=== PATIENT | female | born 1985 | race Caucasian/White ===

== ENCOUNTER 2017-12-20 08:33 | Emergency (ER) | payer MEDICAID, OTHER ==
[~2017-12-20] VITALS: Ht 165.1 cm; Wt 99.8 kg
[2017-12-20] MEDS ORDERED: fentaNYL PF VIAL 100 MCG/2 ML VIAL IV ONE (08:45)
[2017-12-20] MEDS ORDERED: IV NORMAL SALINE 1000ML BAG 1,000 ML IV ONE (08:45)
[2017-12-20] MEDS ORDERED: ONDANSETRON PF 4 MG/2 ML VIAL. IV ONE (08:45)
--- NOTE | 2017-12-20 08:52 | PHYS DOC ---
Past Medical History Past Medical History: No Pertinent History Past Surgical History: No Surgical History Alcohol Use: Occasionally Drug Use: Marijuana, Methamphetamine Adult General Chief Complaint Chief Complaint: NAUSEA/VOMITING/DIARRHA HPI HPI Patient is a 32 year old female who presents with 10 out of 10 sharp constant right upper quadrant abdominal pain radiating to her back that began 3 days ago , patient is also complaining of nausea and vomiting. Denies any fever. Denies any urgency frequency dysuria, denies any chance she is . She states she 's been seen in [facility] for the same complaint and was it was her gallbladder causing her pain but it does not need to be removed. She states she moved from [facility] to [place]. Review of Systems Review of Systems Constitutional: Denies fever or chills [] Eyes: Denies change in visual acuity, redness, or eye pain [] HENT: Denies nasal congestion or sore throat [] Respiratory: Denies cough or shortness of breath [] Cardiovascular: No additional information not addressed in HPI [] GI: Reports right upper quadrant abdominal pain, nausea and vomiting denies bloody stools or diarrhea [] : Denies dysuria or hematuria [] Musculoskeletal: Denies back pain or joint pain [] Integument: Denies rash or skin lesions [] Neurologic: Denies headache, focal weakness or sensory changes [] All other systems were reviewed and found to be within normal limits, except as documented in this note. Current Medications Current Medications Current Medications Medications (Trade) Dose Ordered Sig/Sweta Start Time Stop Time Status Last Admin Dose Admin Ceftriaxone Sodium 50 ml @ 100 mls/hr 1X ONCE 12/20/17 09:15 12/20/17 09:44 DC 12/20/17 09:26 100 MLS/HR Fentanyl Citrate (Fentanyl 2ml Vial) 50 mcg 1X ONCE 12/20/17 08:45 12/20/17 08:50 DC 12/20/17 08:57 50 MCG Ondansetron HCl (Zofran) 4 mg 1X ONCE 12/20/17 08:45 12/20/17 08:50 DC 12/20/17 08:56 4 MG Sodium Chloride 1,000 ml @ 1,000 mls/hr 1X ONCE 12/20/17 08:45 12/20/17 09:44 DC 12/20/17 08:56 1,000 MLS/HR Allergies Allergies Allergies Coded Allergies Type Severity Reaction Last Updated Verified No Known Drug Allergies 12/20/17 No Physical Exam Physical Exam Constitutional: Well developed, well nourished, no acute distress, non-toxic appearance. [] HENT: Normocephalic, atraumatic, bilateral external ears normal, oropharynx moist, no oral exudates, nose normal. [] Eyes: PERRLA, EOMI, conjunctiva normal, no discharge. [] Neck: Normal range of motion, no tenderness, supple, no stridor. [] Cardiovascular:Heart rate regular rhythm, no murmur [] Lungs & Thorax: Bilateral breath sounds clear to auscultation [] Abdomen: Rounded abdomen. Bowel sounds normal, soft, mild right upper quadrant abdominal tenderness with negative Preciado sign, no right lower quadrant tenderness, no masses, no pulsatile masses. [] Skin: Warm, dry, no erythema, no rash. [] Back: No tenderness, no CVA tenderness. [] Extremities: No tenderness, no cyanosis, no clubbing, ROM intact, no edema. [] Neurologic: Alert and oriented X 3, normal motor function, normal sensory function, no focal deficits noted. [] Psychologic: Patient is crying, restless Current Patient Data Vital Signs Vital Signs Date Time Temp Pulse Resp B/P (MAP) Pulse Ox O2 Delivery O2 Flow Rate FiO2 12/20/17 10:00 84 16 101/56 (71) 98 Room Air 12/20/17 08:33 97.4 97.4 Lab Values Laboratory Tests Test 12/20/17 08:40 12/20/17 08:47 White Blood Count 15.1 x10^3/uL (4.0-11.0) H Red Blood Count 4.96 x10^6/uL (3.50-5.40) Hemoglobin 14.4 g/dL (12.0-15.5) Hematocrit 43.7 % (36.0-47.0) Mean Corpuscular Volume 88 fL (79-100) Mean Corpuscular Hemoglobin 29 pg (25-35) Mean Corpuscular Hemoglobin Concent 33 g/dL (31-37) Red Cell Distribution Width 13.8 % (11.5-14.5) Platelet Count 224 x10^3/uL (140-400) Neutrophils (%) (Auto) 90 % (31-73) H Lymphocytes (%) (Auto) 7 % (24-48) L Monocytes (%) (Auto) 2 % (0-9) Eosinophils (%) (Auto) 1 % (0-3) Basophils (%) (Auto) 0 % (0-3) Neutrophils # (Auto) 13.6 x10^3uL (1.8-7.7) H Lymphocytes # (Auto) 1.1 x10^3/uL (1.0-4.8) Monocytes # (Auto) 0.2 x10^3/uL (0.0-1.1) Eosinophils # (Auto) 0.2 x10^3/uL (0.0-0.7) Basophils # (Auto) 0.0 x10^3/uL (0.0-0.2) Platelet Estimate Pending Urine Collection Type Unknown Urine Color Yellow Urine Clarity Cloudy Urine pH 6.0 Urine Specific [place] 1.015 Urine Protein 100 mg/dL (NEG-TRACE) Urine Glucose (UA) Negative mg/dL (NEG) Urine Ketones (Stick) Negative mg/dL (NEG) Urine Blood Large (NEG) Urine Nitrite Negative (NEG) Urine Bilirubin Negative (NEG) Urine Urobilinogen Dipstick 1.0 mg/dL (0.2 mg/dL) Urine Leukocyte Esterase Large (NEG) Urine RBC 11-20 /HPF (0-2) Urine WBC 20-40 /HPF (0-4) Urine Squamous Epithelial Cells Few /LPF Urine Bacteria Many /HPF (0-FEW) Sodium Level 137 mmol/L (136-145) Potassium Level 3.5 mmol/L (3.5-5.1) Chloride Level 104 mmol/L (98-107) Carbon Dioxide Level 28 mmol/L (21-32) Anion Gap 5 (6-14) L Blood Urea Nitrogen 6 mg/dL (7-20) L Creatinine 0.9 mg/dL (0.6-1.0) Estimated GFR (Cockcroft-Gault) 72.1 BUN/Creatinine Ratio 7 (6-20) Glucose Level 83 mg/dL (70-99) Calcium Level 8.5 mg/dL (8.5-10.1) Total Bilirubin 0.5 mg/dL (0.2-1.0) Aspartate Amino Transferase (AST) 11 U/L (15-37) L Alanine Aminotransferase (ALT) 18 U/L (14-59) Alkaline Phosphatase 96 U/L (46-116) Total Protein 7.6 g/dL (6.4-8.2) Albumin 3.4 g/dL (3.4-5.0) Albumin/Globulin Ratio 0.8 (1.0-1.7) L Lipase 80 U/L (73-393) Urine Opiates Screen Pos (NEG) Urine Methadone Screen Neg (NEG) Urine Barbiturates Neg (NEG) Urine Phencyclidine Screen Neg (NEG) Urine Amphetamine/Methamphetamine Neg (NEG) Urine Benzodiazepines Screen Neg (NEG) Urine Cocaine Screen Neg (NEG) Urine Cannabinoids Screen Neg (NEG) Ethyl Alcohol Level < 10 mg/dL (0-10) Urine Ethyl Alcohol Neg (NEG) POC Urine HCG, Qualitative Hcg negative (Negative) Laboratory Tests 12/20/17 08:40 Laboratory Tests 12/20/17 08:40 EKG EKG [] Radiology/Procedures Radiology/Procedures []PROCEDURE: ABDOMEN COMPLETE COMPLETE ABDOMINAL ULTRASOUND Clinical History: RUQ PAIN Comparison: None. Technique: Sonographic examination of the abdomen was performed and multiple grayscale and color Doppler static images were obtained. Findings: Most of the liver is visualized and is homogeneous. The liver measures 18.4 cm. Ultrasound is not sensitive for detecting solid liver lesions. Portal flow is hepatopetal. The common bile duct is normal in caliber, measuring 4 mm in diameter. The gallbladder wall is normal. Per report, sonographic Preciado sign is negative. There is no cholelithiasis or pericholecystic fluid. The visualized pancreas is homogeneous. The right kidney is normal in echotexture and measures 13.6 cm. The left kidney is normal in echotexture and measures 12.6 cm. Corticomedullary differentiation is preserved. There is no hydronephrosis. The spleen is not enlarged, measuring 12.5 cm. Visualized portions of the abdominal aorta and IVC are normal. IMPRESSION: Mild hepatomegaly. Electronically signed by: Perry Roland MD (12/20/2017 10:00 AM) [id number] DICTATED and SIGNED BY: PERRY ROLAND MD DATE: 12/20/17 0957 Course & Med Decision Making Course & Med Decision Making Pertinent Labs and Imaging studies reviewed. (See chart for details) This is a 32-year-old female patient presenting to the ED today complaining of right upper quadrant abdominal pain radiating to her back with nausea and vomiting for 3 days. Has history of gall bladder problems but was told it does not need to be removed per her statement. Abdominal ultrasound is noted for hepatomegaly otherwise no acute findings. CBC with a WBC of 15.1, CMP with no acute findings, UA noted for large amount of leukocytes. Patient was started on Rocephin in the ED. She has been given IV fluids. She has been given nausea medicine and pain medicine. She is resting comfortably, she states she feels better and is very thankful. Her temp is normal the rest of her vitals are stable. She'll be discharged with Cipro. Instructed to push fluids. Follow up with her own doctor in the next 7 days. Provided return to questions and discharged in stable condition. Dragon Disclaimer Dragon Disclaimer This electronic medical record was generated, in whole or in part, using a voice recognition dictation system. Departure Departure Impression: Primary Impression: Acute pyelonephritis Disposition: 01 HOME, SELF-CARE Condition: STABLE Referrals: KIESHA RENTERIA MD Follow-up in one week as needed Patient Instructions: Pyelonephritis, Adult Additional Instructions: You were evaluated in the emergency room and noted to have a kidney infection. We'll put you on antibiotics, ensure you complete them. Take the pain medicine as needed for pain. Push fluids. Follow-up with your own doctor in the course of next week. Come back to the emergency room at any point symptoms worsen. Scripts Tramadol Hcl (ULTRAM) 50 Mg Tablet 50 MG PO Q6HRS PRN for PAIN, #30 TAB 0 Refills Prov: TOOTIE OWENS APRN 12/20/17 Ondansetron (ZOFRAN ODT) 4 Mg Tab.rapdis 1 TAB SL Q8HRS, #15 TAB Prov: TOOTIE OWENS APRN 12/20/17 Ciprofloxacin Hcl (CIPRO) 500 Mg Tablet 1 TAB PO BID, #14 TAB Prov: TOOTIE OWENS APRN 12/20/17 TOOTIE OWENS APRN Dec 20, 2017 08:52
[2017-12-20 08:55] LABS: BASO % 0 % (0-3); EOS # 0.2 x10^3/uL (0.0-0.7); EOS % 1 % (0-3); HEMATOCRIT 43.7 % (36.0-47.0); HEMOGLOBIN 14.4 g/dL (12.0-15.5); LYMPH # 1.1 x10^3/uL (1.0-4.8); LYMPH % 7 % (24-48); MEAN CORPUSCULAR HEMOGLOBIN 29 pg (25-35); MEAN CORPUSCULAR HGB CONC 33 g/dL (31-37); MEAN CORPUSCULAR VOLUME 88 fL (79-100); MONO # 0.2 x10^3/uL (0.0-1.1); MONO % 2 % (0-9); NEUT # 13.6 x10^3uL (1.8-7.7); NEUT % 90 % (31-73); PLATELET COUNT 224 x10^3/uL (140-400); RED BLOOD COUNT 4.96 x10^6/uL (3.50-5.40); RED CELL DISTRIBUTION WIDTH 13.8 % (11.5-14.5); WHITE BLOOD COUNT 15.1 x10^3/uL (4.0-11.0)
[2017-12-20 09:04] LABS: CALCIUM 8.5 mg/dL (8.5-10.1); CREATININE 0.9 mg/dL (0.6-1.0); GFR 72.1; POTASSIUM 3.5 mmol/L (3.5-5.1)
[2017-12-20 09:06] LABS: BILIRUBIN,URINE NEGATIVE (NEG); CLARITY,URINE CLOUDY; COLOR,URINE YELLOW; NITRITE,URINE NEGATIVE (NEG); PROTEIN,URINE 100 mg/dL (NEG-TRACE)
[2017-12-20 09:10] LABS: ALBUMIN 3.4 g/dL (3.4-5.0); ALBUMIN/GLOBULIN RATIO 0.8 (1.0-1.7); SQUAMOUS EPITHELIAL CELL,UR FEW /LPF; TOTAL BILIRUBIN 0.5 mg/dL (0.2-1.0); TOTAL PROTEIN 7.6 g/dL (6.4-8.2)
[2017-12-20 09:11] LABS: BACTERIA,URINE MANY /HPF (0-FEW); WBC,URINE 20-40 /HPF (0-4)
[2017-12-20 09:15] LABS: AMPHETAMINE/METHAMPHETAMINE NEG (NEG); BARBITURATES NEG (NEG); BENZODIAZEPINES NEG (NEG); CANNABINOIDS NEG (NEG); COCAINE NEG (NEG); METHADONE NEG (NEG); OPIATES POS (NEG); PHENCYCLIDINE NEG (NEG)
[2017-12-20 10:00] VITALS: BP 101/56
--- NOTE | 2017-12-20 10:04 | RAD ---
COMPLETE ABDOMINAL ULTRASOUND Clinical History: RUQ PAIN Comparison: None. Technique: Sonographic examination of the abdomen was performed and multiple grayscale and color Doppler static images were obtained. Findings: Most of the liver is visualized and is homogeneous. The liver measures 18.4 cm. Ultrasound is not sensitive for detecting solid liver lesions. Portal flow is hepatopetal. The common bile duct is normal in caliber, measuring 4 mm in diameter. The gallbladder wall is normal. Per report, sonographic Preciado sign is negative. There is no cholelithiasis or pericholecystic fluid. The visualized pancreas is homogeneous. The right kidney is normal in echotexture and measures 13.6 cm. The left kidney is normal in echotexture and measures 12.6 cm. Corticomedullary differentiation is preserved. There is no hydronephrosis. The spleen is not enlarged, measuring 12.5 cm. Visualized portions of the abdominal aorta and IVC are normal. IMPRESSION: Mild hepatomegaly. Electronically signed by: Perry Roland MD (12/20/2017 10:00 AM) [id number]
[2017-12-20] MEDS ORDERED: ONDA4TAB10 SL (10:22)
[2017-12-20] MEDS ORDERED: TRAM-48 PO (10:22)
[2017-12-20] MEDS ORDERED: CIPR500T94 PO (10:22)
[2017-12-20 12:45] LABS: % ATYL 1 % (0-0); % BANDS 7 % (0-9); % EOS 1 % (0-5); % LYMPHS 9 % (24-48); % MONOS 1 % (0-10); % SEGS 81 % (35-66)
[2017-12-20 14:24] LABS: PLT ESTIMATE ADEQUATE (ADEQUATE)
== END 2017-12-20 10:25 | disposition home or self-care (01) ==
LOC: ER 10:06
DX: N10 Acute pyelonephritis (principal)
CPT/HCPCS: 36415; 76700; 80053; 80307; 81001; 81025; 83690; 85007; 85025; 87086; 96365; 96375; 99285; G0480; J0690; J2405; J3010; J7030; G0479

== ENCOUNTER 2018-03-02 14:38 | Emergency (ER) | payer SELFPAY ==
[~2018-03-02] VITALS: Ht 165.1 cm; Wt 95.3 kg
[~2018-03-02 14:38] MED LIST: CIPR500T94 PO; ONDA4TAB10 SL; TRAM-48 PO
[2018-03-02 14:46] VITALS: BP 126/74
[2018-03-02] MEDS ORDERED: DEXAMETHASONE 4 MG TABLET PO ONE (15:00)
[2018-03-02] MEDS ORDERED: ONDANSETRON ODT 4 MG TAB.RAPDIS. PO ONE (15:00)
[2018-03-02] MEDS ORDERED: IBUPROFEN 400 MG TABLET. PO ONE ×2 (15:15→15:26)
[2018-03-02] MEDS ORDERED: AMOX500T PO (15:15)
--- NOTE | 2018-03-02 15:16 | PHYS DOC ---
Past Medical History Past Medical History: No Pertinent History Past Surgical History: No Surgical History Additional Past Surgical Histo: DNC x 2 Alcohol Use: Occasionally Drug Use: Marijuana, Methamphetamine Adult General Chief Complaint Chief Complaint: SORE THROAT HPI HPI Patient is a 32 year old female who presents with sore throat, ear pressure, cough, cotton cold chills, nausea vomiting times the last 3 days. Patient states that she has not taken any medications and she takes no medications daily. She states that she has no known drug allergies and has no medical history. Patient states that she does smoke. Review of Systems Review of Systems Constitutional: Denies fever or chills [] Eyes: Denies change in visual acuity, redness, or eye pain. Ear pain bilaterally.[] HENT: Denies nasal congestion. Sore throat [] Respiratory: Denies cough or shortness of breath [] Cardiovascular: No additional information not addressed in HPI [] GI: Denies abdominal pain. Denies nausea, vomiting. Denies bloody stools or diarrhea [] : Denies dysuria or hematuria [] Musculoskeletal: Generalized body aches. Denies back pain or joint pain [] Integument: Denies rash or skin lesions [] Neurologic: Denies headache, focal weakness or sensory changes [] All other systems were reviewed and found to be within normal limits, except as documented in this note. Current Medications Current Medications Current Medications Medications (Trade) Dose Ordered Sig/Sweta Start Time Stop Time Status Last Admin Dose Admin Dexamethasone (Decadron) 8 mg 1X ONCE 03/02/18 15:00 03/02/18 15:01 DC 03/02/18 15:11 8 MG Ibuprofen (Motrin) 400 mg STK-MED ONCE 03/02/18 15:26 03/02/18 15:27 DC Ondansetron HCl (Zofran Odt) 4 mg 1X ONCE 03/02/18 15:00 03/02/18 15:01 DC 03/02/18 15:11 4 MG Allergies Allergies Allergies Coded Allergies Type Severity Reaction Last Updated Verified No Known Drug Allergies 12/20/17 No Physical Exam Physical Exam Constitutional: Well developed, well nourished, no acute distress, non-toxic appearance. [] HENT: Normocephalic, atraumatic, bilateral external ears normal, oropharynx moist, no oral exudates, nose normal. Red throat, pain with exudates.[] Eyes: PERRLA, EOMI, conjunctiva normal, no discharge. [] Neck: Normal range of motion, no tenderness, supple, no stridor. [] Cardiovascular:Heart rate regular rhythm, no murmur [] Lungs & Thorax: Bilateral breath sounds clear to auscultation [] Abdomen: Bowel sounds normal, soft, no tenderness, no masses, no pulsatile masses. [] Skin: Warm, dry, no erythema, no rash. [] Back: No tenderness, no CVA tenderness. [] Extremities: No tenderness, no cyanosis, no clubbing, ROM intact, no edema. [] Neurologic: Alert and oriented X 3, normal motor function, normal sensory function, no focal deficits noted. [] Psychologic: Affect normal, judgement normal, mood normal. [] Current Patient Data Vital Signs Vital Signs Date Time Temp Pulse Resp B/P (MAP) Pulse Ox O2 Delivery O2 Flow Rate FiO2 03/02/18 14:46 97.8 117 18 126/74 (91) 99 Room Air 97.8 EKG EKG [] Radiology/Procedures Radiology/Procedures [] Course & Med Decision Making Course & Med Decision Making Patient is a 32 year old female who presents with sore throat, ear pressure, cough, cotton cold chills, nausea vomiting times the last 3 days. Patient states that she has not taken any medications and she takes no medications daily. She states that she has no known drug allergies and has no medical history. Patient states that she does smoke. Patient is alert and oriented. Skin is pink warm and dry. Lungs are clear to auscultation all lobes. Mucous membranes are moist. Abdomen is soft and nontender. Throat is red with exudates and tonsils are slightly swollen. Patient denies any shortness of breath or chest pain. Patient speaks in full clear sentences. Bilateral tympanic membranes are pearly white. Patient's strep is positive. Patient is given a dose of dexamethasone, Zofran, ibuprofen in the ED. Patient is discharged with amoxicillin and to follow-up with her primary care within the next 3 days. Patient is stable and in no distress. Dragon Disclaimer Dragon Disclaimer This electronic medical record was generated, in whole or in part, using a voice recognition dictation system. Departure Departure Impression: Primary Impression: Strep pharyngitis Disposition: HOME, SELF-CARE Condition: STABLE Referrals: NO PCP (PCP) Patient Instructions: Strep Throat Additional Instructions: Follow up with your primary care within 3 days. Take medications as prescribed. Take Tylenol or Ibuprofen for pain. Scripts Amoxicillin (AMOXICILLIN) 500 Mg Tablet 1 TAB PO BID, #20 TAB Prov: RANDALL ELMORE APRN 03/02/18 RANDALL ELMORE APRN Mar 02, 2018 15:16
== END 2018-03-02 15:32 | disposition home or self-care (01) ==
LOC: ER 14:38
DX: J02.0 Streptococcal pharyngitis (principal); B95.4 Other streptococcus as the cause of diseases classified elsewhere; R11.2 Nausea with vomiting, unspecified; R68.83 Chills (without fever); M79.10 Myalgia, unspecified site
CPT/HCPCS: 87880; 99284; J8540; Q0162

== ENCOUNTER 2019-06-10 11:07 | Emergency (ER) | payer SELFPAY ==
[~2019-06-10] VITALS: Ht 162.6 cm; Wt 102.0 kg
[~2019-06-10 11:07] MED LIST changes: +AMOX500T PO
--- NOTE | 2019-06-10 12:44 | PHYS DOC ---
Past Medical History Past Medical History: No Pertinent History Past Surgical History: No Surgical History Additional Past Surgical Histo: DNC x 2 Smoking Status: Current Every Day Smoker Alcohol Use: Occasionally Drug Use: Marijuana, Methamphetamine Adult General Chief Complaint Chief Complaint: ABDOMINAL PAIN [facility] HPI Patient is a 34 year old female, accompanied by her and children, who presents to the emergency department with complaints of right-sided upper back pain and right-sided chest pain that began at approximately 9:30 this morning. Patient denies any known injury. She denies any palpitations, diaphoresis, dizziness, nausea, vomiting, diarrhea, abdominal pain, shortness of breath, wheezing, or fever. She states that she had similar pain like this when she was and had gallbladder problems. Patient states that the pain is worse if she lies on her back. She reports that she has recently been sleeping on the floor at her sister's house but denies any known trauma or injury. Patient currently rates her pain a 10 out of 10 on pain scale, she denies any alleviating factors. All other ROS is neg unless otherwise noted in HPI. Review of Systems Review of Systems See Above Current Medications Current Medications Current Medications Medications (Trade) Dose Ordered Sig/Sweta Start Time Stop Time Status Last Admin Dose Admin Fentanyl Citrate (Fentanyl 2ml Vial) 50 mcg 1X ONCE 06/10/19 13:30 06/10/19 13:31 DC 06/10/19 13:36 50 MCG Multi-Ingredient Mouthwash/Gargle (Gi Cocktail) 20 ml 1X ONCE 06/10/19 13:00 06/10/19 13:01 DC 06/10/19 13:10 20 ML Ondansetron HCl (Zofran) 4 mg 1X ONCE 06/10/19 13:30 06/10/19 13:31 DC 06/10/19 13:35 4 MG Orphenadrine Citrate (Norflex) 60 mg 1X ONCE 06/10/19 14:30 06/10/19 14:31 DC Sodium Chloride 1,000 ml @ 1,000 mls/hr 1X ONCE 06/10/19 13:30 06/10/19 14:29 DC 06/10/19 13:33 1,000 MLS/HR Allergies Allergies Allergies Coded Allergies Type Severity Reaction Last Updated Verified No Known Drug Allergies 12/20/17 No Physical Exam Physical Exam See Above Constitutional: Well developed, well nourished, no acute distress, non-toxic appearance. [] HENT: Normocephalic, atraumatic, bilateral external ears normal, oropharynx moist, no oral exudates, nose normal. [] Eyes: PERRLA, EOMI, conjunctiva normal, no discharge. [] Neck: Normal range of motion, no stridor. [] Cardiovascular:Heart rate regular rhythm, no murmur [] Lungs & Thorax: Bilateral breath sounds clear to auscultation, Respirations even and unlabored, no retractions, no respiratory distress, chest non-tender to palpation [] Abdomen: Bowel sounds normal, soft, no tenderness, no masses, no pulsatile masses. [] Skin: Warm, dry, no erythema, no rash. [] Back: No bony tenderness, no CVA tenderness, R thoracic paraspinal TTP Extremities: No tenderness, no cyanosis, no clubbing, ROM intact, no edema. [] Neurologic: Alert and oriented X 3, no focal deficits noted. [] Psychologic: Affect normal, judgement normal, mood normal. [] Current Patient Data Vital Signs Vital Signs Date Time Temp Pulse Resp B/P (MAP) Pulse Ox O2 Delivery O2 Flow Rate FiO2 06/10/19 13:36 16 96 Room Air 06/10/19 12:42 97.6 69 137/90 (106) 97.6 Lab Values Laboratory Tests Test 06/10/19 13:00 06/10/19 13:04 06/10/19 13:13 Urine Color Yellow Urine Clarity Clear Urine pH 6.0 Urine Specific [place] 1.010 Urine Protein Negative mg/dL (NEG-TRACE) Urine Glucose (UA) Negative mg/dL (NEG) Urine Ketones (Stick) Negative mg/dL (NEG) Urine Blood Negative (NEG) Urine Nitrite Negative (NEG) Urine Bilirubin Negative (NEG) Urine Urobilinogen Dipstick 0.2 mg/dL (0.2 mg/dL) Urine Leukocyte Esterase Negative (NEG) Urine RBC 0 /HPF (0-2) Urine WBC Occ /HPF (0-4) Urine Squamous Epithelial Cells Occ /LPF Urine Bacteria Few /HPF (0-FEW) Urine Opiates Screen Neg (NEG) Urine Methadone Screen Neg (NEG) Urine Barbiturates Neg (NEG) Urine Phencyclidine Screen Neg (NEG) Urine Amphetamine/Methamphetamine Neg (NEG) Urine Benzodiazepines Screen Neg (NEG) Urine Cocaine Screen Neg (NEG) Urine Cannabinoids Screen Neg (NEG) Urine Ethyl Alcohol Neg (NEG) POC Urine HCG, Qualitative Hcg negative (Negative) White Blood Count 10.3 x10^3/uL (4.0-11.0) Red Blood Count 4.84 x10^6/uL (3.50-5.40) Hemoglobin 14.3 g/dL (12.0-15.5) Hematocrit 42.4 % (36.0-47.0) Mean Corpuscular Volume 88 fL (79-100) Mean Corpuscular Hemoglobin 30 pg (25-35) Mean Corpuscular Hemoglobin Concent 34 g/dL (31-37) Red Cell Distribution Width 14.3 % (11.5-14.5) Platelet Count 217 x10^3/uL (140-400) Neutrophils (%) (Auto) 72 % (31-73) Lymphocytes (%) (Auto) 17 % (24-48) L Monocytes (%) (Auto) 8 % (0-9) Eosinophils (%) (Auto) 2 % (0-3) Basophils (%) (Auto) 1 % (0-3) Neutrophils # (Auto) 7.4 x10^3/uL (1.8-7.7) Lymphocytes # (Auto) 1.8 x10^3/uL (1.0-4.8) Monocytes # (Auto) 0.8 x10^3/uL (0.0-1.1) Eosinophils # (Auto) 0.2 x10^3/uL (0.0-0.7) Basophils # (Auto) 0.1 x10^3/uL (0.0-0.2) Sodium Level 139 mmol/L (136-145) Potassium Level 4.4 mmol/L (3.5-5.1) Chloride Level 107 mmol/L (98-107) Carbon Dioxide Level 25 mmol/L (21-32) Anion Gap 7 (6-14) Blood Urea Nitrogen 8 mg/dL (7-20) Creatinine 0.6 mg/dL (0.6-1.0) Estimated GFR (Cockcroft-Gault) 113.8 BUN/Creatinine Ratio 13 (6-20) Glucose Level 86 mg/dL (70-99) Calcium Level 8.6 mg/dL (8.5-10.1) Total Bilirubin 0.3 mg/dL (0.2-1.0) Aspartate Amino Transferase (AST) 17 U/L (15-37) Alanine Aminotransferase (ALT) 20 U/L (14-59) Alkaline Phosphatase 78 U/L (46-116) Total Protein 6.4 g/dL (6.4-8.2) Albumin 2.9 g/dL (3.4-5.0) L Albumin/Globulin Ratio 0.8 (1.0-1.7) L Lipase 80 U/L (73-393) Laboratory Tests 06/10/19 13:13 Laboratory Tests 06/10/19 13:13 EKG EKG [] Radiology/Procedures Radiology/Procedures PROCEDURE: ABDOMEN LTD EXAM: Abdomen sonogram. HISTORY: Pain. TECHNIQUE: Sonographic imaging of the abdomen was performed. COMPARISON: None. FINDINGS: The liver is mildly enlarged. No focal hepatic lesion is seen. The gallbladder is unremarkable. The common bile duct is normal in caliber. The pancreas is obscured due to bowel gas. The right kidney and inferior vena cava are unremarkable. IMPRESSION: 1. Mild hepatomegaly. 2. Obscured pancreas due to bowel gas.[] Course & Med Decision Making Course & Med Decision Making Pertinent Labs and Imaging studies reviewed. (See chart for details) Patient is a 34-year-old female who presented to the emergency department with complaints of right upper back pain, and right chest pain that began at 9:30 this morning. She was given a GI cocktail with no reduction of her symptoms, patient was then given 50 g of fentanyl reported some relief of her symptoms but pain remained a 5 out of 10 on the pain scale. Ultrasound was negative for any acute findings, the gallbladder appeared normal. CBC was unremarkable, CMP was also unremarkable, UA was unremarkable. Patient was given 60 mg of IV orphenadrine. Patient requested a note that she could provide to the court tomorrow when she has to give a urine specimen that states she was given pain medication. Prescriptions written for ibuprofen and flexeril. Apply ice or heat to sore areas as needed for comfort. Follow up with PCP if symptoms persist, return to the ER if symptoms worsen. Pt verbalized an understanding of home care, medications, follow-up, and return to ED instructions and was in agreement with the plan of care. [] Dragon Disclaimer Dragon Disclaimer This electronic medical record was generated, in whole or in part, using a voice recognition dictation system. Departure Departure Impression: Primary Impression: Upper back pain on right side Disposition: 01 HOME, SELF-CARE Condition: STABLE Referrals: NO PCP (PCP) Patient Instructions: Back Pain, Adult, [id number] Additional Instructions: Fill the prescription(s) and use as directed. You were given 1 dose of Fentanyl in the ER today. Apply heat or ice for to sore areas as needed for comfort. Activity as tolerated. Follow up with your primary care doctor this week if symptoms persist, return to the ER if symptoms worsen. Scripts Ibuprofen (IBUPROFEN) 600 Mg Tablet 600 MG PO PRN Q6HRS PRN for INFLAMMATION for 10 Days, #40 TAB 0 Refills Prov: ARGENIS HAMILTON APRN 06/10/19 Cyclobenzaprine Hcl (CYCLOBENZAPRINE HCL) 10 Mg Tablet 1 TAB PO TID PRN for MUSCLE PAIN for 10 Days, #30 TAB 0 Refills Prov: ARGENIS HAMILTON APRN 06/10/19 ARGENIS HAMILTON APRN Jun 10, 2019 12:44
[2019-06-10] MEDS ORDERED: LIDO:MAALOX 1:1 20 ML SINGLE DOSE. SWSW ONE (13:00)
[2019-06-10 13:27] LABS: BILIRUBIN,URINE NEGATIVE (NEG); CLARITY,URINE CLEAR; COLOR,URINE YELLOW; NITRITE,URINE NEGATIVE (NEG); PROTEIN,URINE NEGATIVE (NEG-TRACE); UROBILINOGEN,URINE 0.2 mg/dL (0.2 mg/dL)
[2019-06-10 13:28] LABS: BASO # 0.1 x10^3/uL (0.0-0.2); BASO % 1 % (0-3); EOS # 0.2 x10^3/uL (0.0-0.7); EOS % 2 % (0-3); HEMATOCRIT 42.4 % (36.0-47.0); HEMOGLOBIN 14.3 g/dL (12.0-15.5); LYMPH # 1.8 x10^3/uL (1.0-4.8); LYMPH % 17 % (24-48); MEAN CORPUSCULAR HEMOGLOBIN 30 pg (25-35); MEAN CORPUSCULAR HGB CONC 34 g/dL (31-37); MEAN CORPUSCULAR VOLUME 88 fL (79-100); MONO # 0.8 x10^3/uL (0.0-1.1); MONO % 8 % (0-9); NEUT # 7.4 x10^3/uL (1.8-7.7); NEUT % 72 % (31-73); PLATELET COUNT 217 x10^3/uL (140-400); RED BLOOD COUNT 4.84 x10^6/uL (3.50-5.40); RED CELL DISTRIBUTION WIDTH 14.3 % (11.5-14.5); WHITE BLOOD COUNT 10.3 x10^3/uL (4.0-11.0)
[2019-06-10] MEDS ORDERED: ONDANSETRON PF 4 MG/2 ML VIAL. IV ONE (13:30)
[2019-06-10] MEDS ORDERED: IV NORMAL SALINE 1000ML BAG 1,000 ML IV ONE (13:30)
[2019-06-10] MEDS ORDERED: fentaNYL PF VIAL 100 MCG/2 ML VIAL IV ONE (13:30)
[2019-06-10 13:33] LABS: CALCIUM 8.6 mg/dL (8.5-10.1); CREATININE 0.6 mg/dL (0.6-1.0); GFR 113.8; POTASSIUM 4.4 mmol/L (3.5-5.1)
--- NOTE | 2019-06-10 13:34 | RAD ---
EXAM: Abdomen sonogram. HISTORY: Pain. TECHNIQUE: Sonographic imaging of the abdomen was performed. COMPARISON: None. FINDINGS: The liver is mildly enlarged. No focal hepatic lesion is seen. The gallbladder is unremarkable. The common bile duct is normal in caliber. The pancreas is obscured due to bowel gas. The right kidney and inferior vena cava are unremarkable. IMPRESSION: 1. Mild hepatomegaly. 2. Obscured pancreas due to bowel gas. Electronically signed by: Priya Blake MD (06/10/2019 1:31 PM) [facility] [place]
[2019-06-10 13:41] LABS: ALBUMIN 2.9 g/dL (3.4-5.0); ALBUMIN/GLOBULIN RATIO 0.8 (1.0-1.7); TOTAL BILIRUBIN 0.3 mg/dL (0.2-1.0); TOTAL PROTEIN 6.4 g/dL (6.4-8.2)
[2019-06-10 13:43] LABS: BACTERIA,URINE FEW /HPF (0-FEW); RBC,URINE 0 /HPF (0-2); SQUAMOUS EPITHELIAL CELL,UR OCC /LPF; WBC,URINE OCC /HPF (0-4)
[2019-06-10] MEDS ORDERED: CYCL10TA2 PO (14:25)
[2019-06-10] MEDS ORDERED: IBUP-1007 PO (14:25)
[2019-06-10] MEDS ORDERED: ORPHENADRINE CITRATE 60 MG/2 ML VIAL. IV ONE (14:30)
[2019-06-10 14:44] LABS: AMPHETAMINE/METHAMPHETAMINE NEG (NEG); BARBITURATES NEG (NEG); BENZODIAZEPINES NEG (NEG); CANNABINOIDS NEG (NEG); COCAINE NEG (NEG); METHADONE NEG (NEG); OPIATES NEG (NEG); PHENCYCLIDINE NEG (NEG)
[2019-06-10 14:46] VITALS: BP 113/69
--- NOTE | 2019-06-10 14:58 | EKG ---
[facility] [address] [place] [address] Test Date: 2019-06-10 Test Time: 11:15:24 Pat Name: JANICE OBREGON Department: Room: Gender: F Wood Handler: : 1985 Requested By: STAFF NON Order Number: [id number] Reading MD: Measurements Intervals [place] Rate: 76 P: 18 [place]: 144 QRS: 50 QRSD: 80 T: 49 QT: 352 QTc: 400 Interpretive Statements SINUS RHYTHM ATRIAL PREMATURE COMPLEX(ES) S1,S2,S3 PATTERN OTHERWISE NORMAL ECG No previous ECG available for comparison
== END 2019-06-10 15:10 | disposition home or self-care (01) ==
LOC: ER 11:07
DX: M54.6 Pain in thoracic spine (principal); R07.89 Other chest pain; F12.90 Cannabis use, unspecified, uncomplicated; F15.90 Other stimulant use, unspecified, uncomplicated; F17.200 Nicotine dependence, unspecified, uncomplicated; Z98.890 Other specified postprocedural states
CPT/HCPCS: 36415; 76705; 80053; 80307; 81001; 81025; 83690; 85025; 93005; 96374; 96375; 99285; J2360; J2405; J3010; J7030